=== PATIENT | male | born 1975 | race Caucasian/White ===

== ENCOUNTER 2017-05-09 09:53 | Inpatient (IN) | payer SELFPAY ==
[~2017-05-09] VITALS: Ht 167.6 cm; Wt 100.7 kg
[2017-05-09 10:38] LABS: Urine Bacteria NONE SEEN /hpf (None Seen); Urine Blood 3+ /uL (Negative); Urine Mucus FEW (None Seen); Urine Specific Gravity 1.026 (1.001-1.035); Urine WBC 7 /hpf (0 - 3)
[2017-05-09] MEDS ORDERED: KETOROLAC TROMETH 30 MG/ML 1ML VIAL IV ONE (11:15)
[2017-05-09] MEDS ORDERED: LEVOFLOXACIN 500MG 100 ML IV ONE (11:15)
[2017-05-09] MEDS ORDERED: SODIUM CHLORIDE 0.9% 1,000 ML IV ONE (11:15)
[2017-05-09] MEDS ORDERED: HYDROcodone-ACET 5/325MG TAB PO PRN (11:30)
[2017-05-09] MEDS ORDERED: LORazepam 0.5 MG TAB PO PRN (11:30)
[2017-05-09] MEDS ORDERED: cefTRIAXone 1GM/50ML D5W 50 ML IV ONE (11:30)
[2017-05-09] MEDS ORDERED: NITROGLYCERIN 0.4 MG SL TAB SL PRN (11:30)
[2017-05-09] MEDS ORDERED: TEMAZEPAM 15 MG CAP PO PRN (11:30)
[2017-05-09] MEDS ORDERED: PROMETHAZINE HCL 25 MG/ML 1ML IV PRN (11:30)
[2017-05-09] MEDS ORDERED: MORPHINE SULFATE 10 MG/ML INJ 1ML SDV IV PRN ×2 (11:30)
[2017-05-09] MEDS ORDERED: ACETAMINOPHEN 500 MG TAB PO PRN (11:30)
[2017-05-09 11:44] LABS: Basophils # (auto) 0 uL; Basophils % (auto) 0.4 % (0.0-2.0); Eosinophils # (auto) 0.1 uL; Eosinophils % (auto) 0.7 % (0.0-7.0); Hemoglobin 15.5 g/dL (13.5-17.5); Lymphocytes # (auto) 2.1 uL; Lymphocytes % (auto) 18.8 % (10.0-50.0); Mean Corpuscular Hemoglobin 30.9 pg (28.0-32.0); Mean Corpuscular Hgb Conc. 34.4 g/dL (32.0-36.0); Mean Corpuscular Volume 89.8 fL (80.0-100.0); Monocytes # (auto) 0.9 uL; Monocytes % (auto) 7.9 % (0.0-12.0); Neutrophils # (auto) 7.9 uL; Neutrophils % (auto) 72.2 % (37.0-80.0); Platelet Count (auto) 292 10^3/uL (140-450); Red Blood Cells 5.01 10^6/uL (4.5-5.90); Red Cell Distribution Width 13.6 % (11.8-14.3)
[2017-05-09] MEDS: FAMOTIDINE (10MG/ML) 2ML VL IV SCH ×2 (11:44→23:26)
[2017-05-09 11:59] LABS: Albumin 3.5 g/dL (3.4-5.0); BUN/Creatinine Ratio 9.5; Calcium 8.9 mg/dL (8.5-10.1); Potassium 4.1 mmol/L (3.5-5.1)
[2017-05-09 12:02] LABS: Bilirubin, Total 0.3 mg/dL (0.2-1.0)
[2017-05-09] MEDS: SODIUM CHLORIDE 0.9% 1,000 ML IV SCH ×2 (12:20→21:21)
[2017-05-09 17:56] VITALS: BP 116/70
[2017-05-09 20:00] VITALS: BP 117/76
[2017-05-09 22:09] VITALS: BP 117/76
[2017-05-10 04:59] VITALS: BP 115/79
[2017-05-10 06:49] LABS: Basophils # (auto) 0.1 uL; Basophils % (auto) 0.7 % (0.0-2.0); Eosinophils # (auto) 0.2 uL; Eosinophils % (auto) 2.6 % (0.0-7.0); Hematocrit 44.6 % (41.0-53.0); Lymphocytes # (auto) 2.5 uL; Lymphocytes % (auto) 31.7 % (10.0-50.0); Mean Corpuscular Hemoglobin 30.5 pg (28.0-32.0); Mean Corpuscular Hgb Conc. 33.6 g/dL (32.0-36.0); Monocytes # (auto) 0.6 uL; Monocytes % (auto) 8.2 % (0.0-12.0); Neutrophils # (auto) 4.4 uL; Neutrophils % (auto) 56.8 % (37.0-80.0); Nucleated Red Blood Cells % 0.1 %; Platelet Count (auto) 275 10^3/uL (140-450); Red Cell Distribution Width 13.5 % (11.8-14.3); White Blood Cell 7.7 10^3/uL (4.4-10.8)
[2017-05-10 07:13] LABS: Albumin 3.1 g/dL (3.4-5.0); Calcium 8.8 mg/dL (8.5-10.1); Potassium 4.6 mmol/L (3.5-5.1)
[2017-05-10 07:14] LABS: INR 0.96 (0.9-1.15); Partial Thromboplastin Time 28.5 sec (22.64-33.71); Prothrombin Time 10.5 sec (9.37-12.3)
[2017-05-10 07:16] LABS: BUN/Creatinine Ratio 10.3
[2017-05-10 07:18] LABS: Bilirubin, Total 0.4 mg/dL (0.2-1.0); Total Protein 6.4 g/dL (6.4-8.2)
[2017-05-10 09:00] VITALS: BP 117/66
[2017-05-10] MEDS ORDERED: cefTRIAXone 1GM/50ML D5W 50 ML IV SCH (09:00)
[2017-05-10] MEDS ORDERED: IOHEXOL 300 MG/ML 100ML BOTTLE IJ ONE (11:15)
[2017-05-10] MEDS ORDERED: LIDOCAINE 2% JELLY 11ml (GLYDO) ONE (11:16)
[2017-05-10] MEDS: FAMOTIDINE (10MG/ML) 2ML VL IV SCH ×2 (11:30→13:43)
[2017-05-10] MEDS ORDERED: MEPERIDINE HCL (50 MG/ML) 1 ML VIAL ONE (11:45)
[2017-05-10] MEDS ORDERED: fentaNYL CITRATE 100 MCG/2 ML VL ONE (11:45)
[2017-05-10] MEDS ORDERED: MIDAZOLAM HCL 1MG/1ML-2 ML VIAL ONE (11:45)
[2017-05-10] MEDS ORDERED: METOCLOPRAMIDE HCL 5MG/ml INJ 2ml VIAL ONE (11:59)
[2017-05-10] MEDS ORDERED: DEXAMETHASONE SOD PHOS 10MG/1ML VIAL INJ ONE (11:59)
[2017-05-10] MEDS ORDERED: PROPOFOL 10 MG/ML 20 ML IV ONE (11:59)
[2017-05-10] MEDS ORDERED: MIDAZOLAM HCL 1MG/1ML-2 ML VIAL IV PRN (12:15)
[2017-05-10] MEDS ORDERED: ONDANSETRON HCL 4 MG/2 ML VIAL IV ONE (12:15)
[2017-05-10] MEDS ORDERED: LABETALOL HCL 5 MG/ML 4ML SYRINGE IV PRN (12:15)
[2017-05-10] MEDS ORDERED: ePHEDrine SULFATE 50 MG/ML AMP IV PRN (12:15)
[2017-05-10] MEDS ORDERED: KETOROLAC TROMETH 30 MG/ML 1ML VIAL IV ONE (12:15)
[2017-05-10] MEDS ORDERED: HYDROmorphone HCL 2 MG/ML VL IV PRN (12:15)
[2017-05-10] MEDS ORDERED: MORPHINE SULF INJ 2 MG/ML SYRINGE 1ML IV PRN (12:15)
[2017-05-10] MEDS: SODIUM CHLORIDE 0.9% 1,000 ML IV SCH (13:43)
[2017-05-10] MEDS ORDERED: INFLUENZA QUAD 2017-2018 0.5 ML SYRG IM SCH (14:45)
[2017-05-10] MEDS ORDERED: INFLUENZA QUAD 2017-2018 0.5 ML SYRG IM ONE (14:45)
[2017-05-10 15:01] VITALS: BP 117/66
[2017-05-11] MEDS ORDERED: INFLUENZA QUAD 2017-2018 0.5 ML SYRG IM SCH (10:00)
== END 2017-05-10 15:50 | disposition home or self-care (01) | DRG 694 ==
LOC: ER 09:53 → OVERFLOW 09:54 → WEST WING 16:31
PROVIDERS: ADMIT Internal Medicine; ATTEND Family Medicine
PROC: 0T778DZ Dilation of Left Ureter with Intraluminal Device, Via Natural or Artificial Opening Endoscopic (ICD-10-PCS; principal; 2017-05-10 11:35)
DX: N13.2 Hydronephrosis with renal and ureteral calculous obstruction (principal); K80.20 Calculus of gallbladder without cholecystitis without obstruction; N39.0 Urinary tract infection, site not specified; Z23 Encounter for immunization; Z87.442 Personal history of urinary calculi
CPT/HCPCS: 36415; 74000; 74176; 76000; 80053; 81001; 85025; 85610; 85730; 86850; 86900; 86901; 87086; 96361; 96365; 96375; J0696; J1100; J1885; J1956; J2250; J2704; J3490